=== PATIENT | male | born 1965 | race Caucasian/White ===

== ENCOUNTER 2019-02-21 10:20 | Emergency (ER) | payer BC ==
[~2019-02-21] VITALS: Ht 185.4 cm; Wt 84.1 kg
[2019-02-21] MEDS ORDERED: CYCL10TA PO (10:30)
[2019-02-21] MEDS: HYDROMORPHONE HCL 0.5 MG/ 0.5 ML SYRINGE (J1170 PER 1) IV PRN ×2 (10:55→12:44)
--- NOTE | 2019-02-21 11:46 | REP ---
Clinical: Trauma. Technique: Frontal view of the pelvis with AP and cross-table lateral views of the right hip. Findings: Acute right femoral neck fracture noted. Remainder examination appears normal. Impression: Acute right femoral neck fracture. Electronically Signed by Jhonathan Ortega MD 02/21/2019 11:37 A
[2019-02-21 11:56] LABS: BASO % 0.2 % (0.0-1.0); EOS # 0.1 10^3/uL (0.0-0.50); EOS % 1.2 % (0.0-3.0); HEMATOCRIT 39.4 % (42.0-52.0); HEMOGLOBIN 12.4 g/dl (13.5-17.5); LYMPH # 0.9 10^3/uL (1.5-4.5); LYMPH % 8.7 % (24.0-44.0); MEAN CORPUSCULAR HEMOGLOBIN 22.8 pg (27.0-33.0); MEAN CORPUSCULAR HGB CONC 31.5 g/dl (32.0-36.5); MEAN CORPUSCULAR VOLUME 72.4 fl (80.0-96.0); MONO # 0.6 10^3/uL (0.0-0.8); NEUTROPHILS # 8.7 10^3/uL (1.8-7.7); NEUTROPHILS % 83.5 % (36.0-66.0); PLATELET COUNT, AUTOMATED 214 10^3/uL (150-450); RED BLOOD COUNT 5.44 10^6/uL (4.30-6.10); WHITE BLOOD COUNT 10.4 10^3/uL (4.0-10.0)
[2019-02-21 12:06] LABS: INR 1.1; PROTHROMBIN TIME 13.9 SECONDS (11.8-14.0)
[2019-02-21] MEDS ORDERED: CETI10TA4 PO (12:18)
[2019-02-21] MEDS ORDERED: HYDR-3715 PO (12:18)
[2019-02-21] MEDS ORDERED: VITMTA PO (12:18)
[2019-02-21] MEDS ORDERED: D-20TAB PO (12:18)
--- NOTE | 2019-02-21 12:23 | REP ---
Clinical: Preoperative assessment . Comparison: None . Findings: The mediastinum and cardiac silhouette are stable and within normal limits for portable technique. The lung pop are clear without acute consolidation, effusion, or pneumothorax. Skeletal structures are intact. Impression: No acute cardiopulmonary process appreciated. Electronically Signed by Jhonathan Ortega MD 02/21/2019 12:14 P
[2019-02-21 12:29] LABS: ALBUMIN 4.2 GM/DL (3.2-5.2); ALT/SGPT 31 U/L (12-78); BILIRUBIN,TOTAL 0.4 MG/DL (0.2-1.0); BLOOD UREA NITROGEN 13 MG/DL (7-18); CALCIUM LEVEL 9.1 MG/DL (8.5-10.1); CARBON DIOXIDE LEVEL 27 MEQ/L (21-32); CHLORIDE LEVEL 107 MEQ/L (98-107); CREATININE FOR GFR 1.12 MG/DL (0.70-1.30); GLOMERULAR FILTRATION RATE > 60.0 (>56); GLUCOSE, FASTING 109 MG/DL (70-100); SODIUM LEVEL 141 MEQ/L (136-145); TOTAL PROTEIN 7.2 GM/DL (6.4-8.2)
[2019-02-21] MEDS ORDERED: KCL 20MEQ IN D5/0.45NS 1000ML 1,000 ML IV SCH (12:30)
[2019-02-21] MEDS ORDERED: KCL 20MEQ IN D5/0.2%NS 1000ML 1,000 ML IV SCH (12:30)
[2019-02-21] MEDS ORDERED: HYDROMORPHONE HCL 0.5 MG/ 0.5 ML SYRINGE (J1170 PER 1) IV PRN (14:45)
[2019-02-21 15:06] VITALS: BP 153/77
--- NOTE | 2019-02-21 15:43 | ECGEPIP ---
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
== END 2019-02-21 15:10 | disposition short-term general hospital (02) ==
LOC: EDBD 10:20 → M ED 10:20
DX: S72.001A Fracture of unspecified part of neck of right femur, initial encounter for closed fracture (principal); W01.0XXA Fall on same level from slipping, tripping and stumbling without subsequent striking against object, initial encounter; Y92.89 Other specified places as the place of occurrence of the external cause; Z79.899 Other long term (current) drug therapy; Z88.1 Allergy status to other antibiotic agents
CPT/HCPCS: 71045; 73502; 80053; 85025; 85610; 86850; 86900; 86901; 93005; 96374; 96376; 99284; J1170